=== PATIENT | male | born 1970 | race Caucasian/White ===

== ENCOUNTER 2017-09-13 17:08 | Emergency (ER) | payer OTHER ==
[~2017-09-13] VITALS: Ht 177.8 cm; Wt 74.1 kg
[~2017-09-13 17:08] MED LIST: CYCL10TA7 PO; IBUP-1050 PO; PSEU30TA20 PO; TRAM-10 PO
[2017-09-13 17:11] VITALS: TEMP 37.8; Ht 177.8 cm; Wt 74.1 kg
[2017-09-13] MEDS ORDERED: ACETAMINOPHEN 500 MG TAB PO STA (17:22)
[2017-09-13] MEDS ORDERED: ALBUTEROL HFA 8 GM INHALER INH ONE (17:30)
--- NOTE | 2017-09-13 17:49 | EMERGENCY ROOM VISIT NOTE ---
History Report prepared by [place]: Silvino Nelson Under the Supervision of: Dr. Kimo Young M.D. First contact with patient: 17:16 Chief Complaint: RESPIRATORY PROBLEMS Stated Complaint: FEVER,NIGHTSWEATS,MUSCLE PAIN,COUGH PAIN W/BREATH History of Present Illness The patient is a 47 year old male who presents to the Emergency Room with complaints of persistent generalized illness beginning five days ago. His symptoms include low-grade fevers, chills, body aches, mild sinus congestion, cough and diaphoresis. He states that his cough has now become productive. The patient states that he returned to work yesterday because he was feeling better , but this worsened his symptoms. He notes that he has had one episode of dry heaves this week. He denies any vomiting or diarrhea. The patient had a flu- shot this year. He notes that his children are all sick with similar symptoms although not as severe. Source of History: patient Onset: Five days ago Position: other (generalized) Quality: other (illness) Timing: other (persistent) Associated Symptoms: + fevers (low-grade), + chills, + diaphoresis, + cough (now productive), No vomiting, No diarrhea Note: The patient's symptoms include body aches, and mild sinus congestion. Review of Systems See HPI for pertinent positives & negatives. A total of 10 systems reviewed and were otherwise negative. Past Medical & Surgical Medical Problems: (1) Degenerative disc disease (2) H/O aseptic meningitis Family History No pertinent family history stated. Social History Smoking Status: Never Smoker Alcohol Use: none Marital Status: Occupation Status: employed Current/Historical Medications Scheduled Albuterol Hfa (Ventolin Hfa), 3 PUFFS INH Q6H Levofloxacin (Levaquin), 750 MG PO QD@08 Allergies Coded Allergies: Sulfamethoxazole w/Trimethoprim (Verified Allergy, Unknown, /, 09/13/17) Physical Exam Vital Signs Date Time Temp Pulse Resp B/P (MAP) Pulse Ox O2 Delivery O2 Flow Rate FiO2 09/13/17 18:49 88 18 138/95 99 09/13/17 17:17 96 Room Air 09/13/17 17:11 37.8 92 18 132/83 100 Room Air Physical Exam GENERAL: Patient is in no acute distress. HEENT: No acute trauma, normocephalic atraumatic, mucous membranes moist, no nasal congestion, no scleral icterus. TMs clear bilaterally. No throat erythema. NECK: No stridor, no adenopathy, no meningismus, trachea is midline. LUNGS: Clear to auscultation bilaterally, no wheeze, no rhonchi, breath sounds equal. Dry cough noted. HEART: Without murmurs gallops or rubs, regular rate and rhythm. ABDOMEN: Soft, nontender, bowel sounds positive, no hernias, no peritonitis. EXTREMITIES: No cyanosis or edema, full range of motion of all the joints without pain or difficulty, no signs for acute trauma. NEUROLOGIC: Oriented x 3, no acute motor or sensory deficits, no focal weakness. SKIN: No rash, no jaundice, no diaphoresis. Medical Decision & Procedures ER Provider Diagnostic Interpretation: Radiology results as stated below per my review and radiologist interpretation: CHEST ONE VIEW PORTABLE FINDINGS: There is a triangular airspace opacity at the right medial lung base abutting the right hemidiaphragm. Given history of fever and sepsis this likely represents a pneumonia. Films subsequent to treatment are recommended in follow-up. There are no pleural effusions. The heart is normal in size. IMPRESSION: 1. Right basilar airspace opacity, consistent with pneumonia given the history of fever and sepsis. Films subsequent to treatment are recommended in follow-up. Electronically signed by: Hood Azar M.D. 09/13/2017 5:58 PM Laboratory Results 09/13/17 17:35 Red Blood Count 4.42, Mean Corpuscular Volume 89.4, Mean Corpuscular Hemoglobin 32.1, Mean Corpuscular Hemoglobin Concent 35.9, Mean Platelet Volume 9.2, Neutrophils (%) (Auto) 75.2, Lymphocytes (%) (Auto) 13.3, Monocytes (%) (Auto) 10.1, Eosinophils (%) (Auto) 1.0, Basophils (%) (Auto) 0.2, Neutrophils # (Auto ) 7.87, Lymphocytes # (Auto) 1.39, Monocytes # (Auto) 1.06, Eosinophils # (Auto ) 0.10, Basophils # (Auto) 0.02 09/13/17 17:35 Test 09/13/17 17:35 White Blood Count 10.46 K/uL (4.8-10.8) Red Blood Count 4.42 M/uL (4.7-6.1) Hemoglobin 14.2 g/dL (14.0-18.0) Hematocrit 39.5 % (42-52) Mean Corpuscular Volume 89.4 fL (80-100) Mean Corpuscular Hemoglobin 32.1 pg (25-34) Mean Corpuscular Hemoglobin Concent 35.9 g/dl (32-36) Platelet Count 176 K/uL (130-400) Mean Platelet Volume 9.2 fL (7.4-10.4) Neutrophils (%) (Auto) 75.2 % Lymphocytes (%) (Auto) 13.3 % Monocytes (%) (Auto) 10.1 % Eosinophils (%) (Auto) 1.0 % Basophils (%) (Auto) 0.2 % Neutrophils # (Auto) 7.87 K/uL (1.4-6.5) Lymphocytes # (Auto) 1.39 K/uL (1.2-3.4) Monocytes # (Auto) 1.06 K/uL (0.11-0.59) Eosinophils # (Auto) 0.10 K/uL (0-0.5) Basophils # (Auto) 0.02 K/uL (0-0.2) RDW Standard Deviation 40.1 fL (36.4-46.3) RDW Coefficient of Variation 12.4 % (11.5-14.5) Immature Granulocyte % (Auto) 0.2 % Immature Granulocyte # (Auto) 0.02 K/uL (0.00-0.02) Anion Gap 8.0 mmol/L (3-11) Est Creatinine Clear Calc Drug Dose 113.6 ml/min Estimated GFR () 121.4 Estimated GFR (Non- 104.8 BUN/Creatinine Ratio 15.9 (10-20) Calcium Level 8.9 mg/dl (8.5-10.1) Total Bilirubin 1.0 mg/dl (0.2-1) Aspartate Amino Transf (AST/SGOT) 24 U/L (15-37) Alanine Aminotransferase (ALT/SGPT) 37 U/L (12-78) Alkaline Phosphatase 114 U/L (45-117) Total Protein 7.8 gm/dl (6.4-8.2) Albumin 3.8 gm/dl (3.4-5.0) Globulin 4.0 gm/dl (2.5-4.0) Albumin/Globulin Ratio 0.9 (0.9-2) Influenza Type A Antigen Neg for Influ A (NEG) Influenza Type B Antigen Neg for Influ B (NEG) Laboratory results reviewed by me. Medications Administered Medications (Trade) Dose Ordered Sig/Hakan Route Start Time Stop Time Status Last Admin Dose Admin Albuterol (Ventolin Hfa Inhaler) 3 puffs NOW ONCE INH 09/13/17 17:30 09/13/17 17:31 DC 09/13/17 17:38 3 PUFFS Acetaminophen (Tylenol Tab) 1,000 mg NOW STAT PO 09/13/17 17:22 09/13/17 17:25 DC 09/13/17 17:38 1,000 MG Levofloxacin (Levaquin Tab) 750 mg ONE ONCE PO 09/13/17 18:15 09/13/17 18:16 DC 09/13/17 18:24 750 MG Potassium Chloride (Klor-Con M10) 40 meq NOW STAT PO 09/13/17 18:33 09/13/17 18:34 DC 09/13/17 18:42 40 MEQ ECG Indication: SOB/dyspnea Rate (beats per minute): 90 Rhythm: normal sinus Findings: no acute ischemic change, no ectopy ED Course 1718: The patient was evaluated in room A12B. A complete history and physical exam was performed. 1722: Ordered Tylenol Tab 1000 mg PO. 1730: Ordered Ventolin Hfa Inhaler 3 puffs INH. 1815: Ordered Levaquin Tab 750 mg PO. 1833: Ordered Klor-Con M10 40 meq PO. 1836: Reevaluated the patient. Discussed results and discharge instructions: he verbalized understanding and agreement. The patient is ready for discharge. Medical Decision The patient is a 47 year old male who presents to the ED with complaints of generalized illness. Differential diagnoses considered include pneumonia, bronchitis, influenza, flu-like illness, CHF, and pneumothorax. There is no leukocytosis or concerning anemia. Potassium was somewhat low at 2.9, no kidney failure or hepatitis. Blood cultures are pending. Influenza testing was negative. Chest x-ray shows a right lower lung pneumonia. No pneumothorax or CHF. EKG shows a normal sinus rhythm, no acute ischemia. The patient was given albuterol via MDI, oral Levaquin, oral potassium and oral Tylenol. He is doing well. He is not hypoxic or toxic. He is being discharged on Levaquin for 5 more days, albuterol for bronchospasm, rest and hydration were encouraged. He will stop the Zithromax. If worsening, he can return. Medication Reconcilliation Current Medication List: was personally reviewed by me Blood Pressure Screening Patient's blood pressure: Elevated blood pressure Blood pressure disposition: Elevated BP felt to be situational Impression Primary Impression: Pneumonia Scribe Attestation The scribe's documentation has been prepared under my direction and personally reviewed by me in its entirety. I confirm that the note above accurately reflects all work, treatment, procedures, and medical decision making performed by me. Departure Information Dispostion Home / Self-Care Prescriptions Albuterol Hfa (VENTOLIN HFA) 200 Puffs/49146 Mcg Aers 3 PUFFS INH Q6H, #1 INHALER Prov: Kimo Young M.D. 09/13/17 Levofloxacin (Levaquin) 750 Mg Tab 750 MG PO QD@08, #5 TAB Prov: Kimo Young M.D. 09/13/17 Referrals Jose Chatman M.D. (PCP) Forms HOME CARE DOCUMENTATION FORM, IMPORTANT VISIT INFORMATION, WORK / SCHOOL INSTRUCTIONS Patient Instructions My [facility] Additional Instructions albuterol 3 puffs every 6 hours tylenol or motrin for fever and aches fluids rest Levaquin daily for 5 more days return if worsening your potassium was somewhat low today--bananas, potatoes, tomatoes you should see your fam md for a repeat chest film to be sure the pneumonia has cleared
[2017-09-13 17:57] LABS: BASO % 0.2 %; BASO ABS # 0.02 K/uL (0-0.2); COMPLETE YES; HEMATOCRIT 39.5 % (42-52); IG% 0.2 %; LYMPH % 13.3 %; LYMPH ABS # 1.39 K/uL (1.2-3.4); MEAN CELL VOLUME 89.4 fL (80-100); MEAN CORPUSCULAR HEMOGLOBIN 32.1 pg (25-34); MEAN CORPUSCULAR HGB CONC 35.9 g/dl (32-36); MEAN PLATELET VOLUME 9.2 fL (7.4-10.4); MONO % 10.1 %; NEUT % 75.2 %; PLATELET COUNT 176 K/uL (130-400); RED BLOOD COUNT 4.42 M/uL (4.7-6.1); WHITE BLOOD COUNT 10.46 K/uL (4.8-10.8)
--- NOTE | 2017-09-13 17:59 | DIAGNOSTIC IMAGING REPORT ---
CHEST ONE VIEW PORTABLE CLINICAL HISTORY: Fever. Sepsis. COMPARISON STUDY: No previous studies for comparison. FINDINGS: There is a triangular airspace opacity at the right medial lung base abutting the right hemidiaphragm. Given history of fever and sepsis this likely represents a pneumonia. Films subsequent to treatment are recommended in follow-up. There are no pleural effusions. The heart is normal in size. IMPRESSION: 1. Right basilar airspace opacity, consistent with pneumonia given the history of fever and sepsis. Films subsequent to treatment are recommended in follow-up. Electronically signed by: Hood Azar M.D. 09/13/2017 5:58 PM Dictated Date/Time: 09/13/2017 5:57 PM
[2017-09-13 18:15] LABS: BUN/CREATININE RATIO 15.9 (10-20); CALCIUM 8.9 mg/dl (8.5-10.1); CREATININE 0.83 mg/dl (0.60-1.40); POTASSIUM 2.9 mmol/L (3.5-5.1)
[2017-09-13] MEDS ORDERED: LEVOFLOXACIN 750 MG TAB PO ONE (18:15)
[2017-09-13 18:17] LABS: ALB/GLOB RATIO 0.9 (0.9-2)
[2017-09-13] MEDS ORDERED: LEVO1TAB35 PO (18:29)
[2017-09-13] MEDS ORDERED: VNTHFA/IN INH (18:29)
[2017-09-13] MEDS ORDERED: POTASSIUM CHLORIDE 10 MEQ TABCR PO STA (18:33)
[2017-09-13 18:49] VITALS: BP 138/95; PULSE 88; O2SAT 99
[2017-09-13 19:16] LABS: INFLUENZA A PCR Neg for Influ A (NEG); INFLUENZA B PCR Neg for Influ B (NEG)
== END 2017-09-13 18:51 | disposition home or self-care (01) ==
LOC: C.EDB 17:09 → C.EDA 18:51
DX: J18.9 Pneumonia, unspecified organism (principal); R03.0 Elevated blood-pressure reading, without diagnosis of hypertension

== ENCOUNTER → 2018-04-22 | Outpatient (CLI) | payer OTHER ==
[2018-04-22 18:04] LABS: ALBUMIN 4.7 gm/dl (3.4-5.0); ALKALINE PHOSPHATASE 111 U/L (45-117); ALT/SGPT 33 U/L (12-78); AST/SGOT 17 U/L (15-37); BLOOD UREA NITROGEN 16 mg/dl (7-18); CALCIUM 8.8 mg/dl (8.5-10.1); CARBON DIOXIDE 30 mmol/L (21-32); GLUCOSE 82 mg/dl (70-99); POTASSIUM 3.8 mmol/L (3.5-5.1); SODIUM 136 mmol/L (136-145); TOTAL PROTEIN 7.5 gm/dl (6.4-8.2)
== END | disposition home or self-care (01) ==
LOC: C.LABMFLN 11:52
PROVIDERS: ATTEND Internal Medicine
DX: J18.1 Lobar pneumonia, unspecified organism (principal); M25.50 Pain in unspecified joint